=== PATIENT | female | born 1975 | race Caucasian/White ===

== ENCOUNTER → 2018-03-08 10:42 | Outpatient (CLI) | payer MEDICAID, SELFPAY ==
--- NOTE | 2018-03-08 10:48 | BI_ITS ---
MAMMOGRAPHY - BILATERAL SCREENING 3-D MAGNUS SYNTHESIS REASON FOR EXAM: Female, 42 years old. Bilateral Screening 3-D tomosynthesis PERTINENT HISTORY: No significant family history. TECHNIQUE: 2-D mammograms and 3-D Magnus synthesis of the breasts were performed. CAD was performed. COMPARISON: 03/06/2017 through 02/24/2015. FINDINGS: The breast composition is heterogeneously dense that can obscure small breast masses. No significant architectural distortion, asymmetric density, abnormal microcalcification cluster, dominant mass, adenopathy, skin thickening or nipple retraction identified. Coarse benign-appearing calcifications. No significant abnormality identified with tomosynthesis. BI/SCREENING MAMM (CAD), BILAT IMPRESSION: No mammographic sign of malignancy. Routine yearly mammograms recommended. ASSESSMENT CATEGORY: BIRADS Category 2: Benign. A letter regarding these results will be sent to the patient by the facility within 30 days. FOLLOW UP RECOMMENDATION: Yearly follow up mammogram recommended. (A) Negative results should not deter biopsy as a palpable lesion if present should be followed on clinical grounds and biopsy performed if clinically persistent for 3 months or increasing size. Approximately 10% of breast cancers are not detected by mammography. A normal mammogram should not delay biopsy of a clinically suspicious abnormality. Electronically Signed: Gustavo Marroquin, at 19:21 EDT Tel , Service support ,
== END ==
PROVIDERS: Family Provider Family Medicine; PCP Family Medicine; Visit Provider Family Medicine
DX: Z12.31 Encounter for screening mammogram for malignant neoplasm of breast (principal)
CPT/HCPCS: 77063; 77067

== ENCOUNTER → 2018-05-23 14:32 | Outpatient (CLI) | payer MEDICAID, SELFPAY ==
[2018-05-23 16:09] LABS: Cholesterol 183 mg/dL (200); High Density Lipoprotein 38 mg/dL; Thyroid Stim Hormone (TSH) 1.04 uIU/mL (0.358-3.74); Triglycerides 202 mg/dL; Very Low Density Lipoprotein 40 mg/dL (5-40)
== END ==
PROVIDERS: Family Provider Family Medicine; PCP Family Medicine; Visit Provider Family Medicine
DX: Z13.220 Encounter for screening for lipoid disorders (principal); E03.9 Hypothyroidism, unspecified
CPT/HCPCS: 36415; 80061; 84443

== ENCOUNTER → 2019-06-09 16:32 | Outpatient (CLI) | payer MEDICAID, SELFPAY ==
[2019-06-09 18:16] LABS: T4 Free Direct 1.08 ng/dL (0.76-1.46); Thyroid Stim Hormone (TSH) 0.82 uIU/mL (0.358-3.74)
== END ==
PROVIDERS: Family Provider Family Medicine; PCP Family Medicine; Visit Provider Family Medicine
DX: E03.9 Hypothyroidism, unspecified (principal)
CPT/HCPCS: 36415; 84439; 84443

== ENCOUNTER 2019-07-28 23:06 | Emergency (ER) | payer MEDICAID, SELFPAY ==
[2019-07-28 23:07] VITALS: BP 154/94; PULSE 98; RESP 18; TEMP 36.8; O2SAT 100; BMI 26.2
--- NOTE | 2019-07-28 23:30 | ED.DCSUM_ITS ---
History of Present Illness Chief Complaint: Sore Throat Informant: Patient Onset: Days - 2-3 Context: Gradual Onset Timing: Continuous Quality: sore Location: throat Current Severity: Moderate Maximum Severity: Moderate Worsened by: Swallowing, - - worse at night than in the AM Relieved by: - - nothing; tried NSAID Associated Symptoms: Negative for: Nasal Congestion, Headache, Sinus Pressure, Nausea, Vomiting, Shortness of Breath, Chest Pain, Nonproductive cough, Prod uctive Cough Narrative: Patient has swollen sore lymph node under her left jaw. No tooth ache. Pain radiates into her left ear. No coughing or fevers. 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 - Past Medical History (1) Hypothyroid Status: Chronic Past Medical History - Allergies and Home Meds Allergies/Adverse Reactions: Allergies No Known Allergies Allergy (Verified 07/28/19 23:09) Primary Care Physician: Robin Aguilar MD [Primary Care Provider] - Lives: Spouse/ Significant Other Smoking Status: Never smoker Review of Systems General: Denies: Chills, Fever, Sweats Eyes: Denies: Visual changes - bilaterally, Diplopia ENT: Reports: Right ear pain, Sore throat. Denies: Rhinorrhea Cardiovascular: Denies: Chest pain, Palpitations Respiratory: Denies: Dyspnea, Cough, Dyspnea on exertion Gastrointestinal: Denies: Abdominal pain, Nausea, Vomiting, Diarrhea, Melena, Hematochezia Skin: Denies: Rash, Wounds Neurological: Denies: Headache, Weakness, Numbness Hematologic: Reports: Lymphadenopathy. Denies: Easy bruising, Easy bleeding Allergy: Denies: Swelling of the mouth, Swelling of the tongue Physical Exam Vital Signs/Narrative: Vital Signs Temp Pulse Resp BP Pulse Ox 07/28/19 23:07 98.2 F 98 18 154/94 H 100 Inital Vital Signs reviewed: Yes General: Well nourished, Well developed Head: Normocephalic, Atraumatic Eyes: Perrl, EOMI Ears: Normal external canal, TM's clear. Negative for: Pain with Movement of Right Tragus, Pain with Movement of Left Tragus Nose: Normal Inspection, No Rhinorrhea. Negative for: Congestion, Purulent Drainage Mouth/Throat: Airway Patent, Posterior Oropharyngeal Erythema, - - No sublingual edema or tenderness. No discharge from any of the salivary gland ducts. No dental tenderness. No dental abscess or gingival abnormality. Tonsils: Negative for: Right Tonsilar Exudates, Left Tonsilar Exudates, Right Tonsilar Swelling, Left Tonsilar Swelling Neck: Supple, Anterior Lymphadenopathy - Left submandibular only. Negative for: Posterior Lymphadenopathy Cardiovascular: Regular rate, Regular rhythm, No murmurs Respiratory: No distress, CTA bilaterally, Chest nontender Skin: Normal color, No rash, No Trauma Neurological: Alert, Oriented x3, Cranial nerves II-XII grossly intact, Normal Strength, Normal Sensation, Normal Gait Psychological: Normal affect, Normal Mood Diagnostic/Tx/Re-eval - Medical Decision Making Rapid strep was performed and is negative. Culture is sent and pending. This makes the etiology much more likely to be viral, especially given the high prevalence of viral illness in this area recently, I would treat her with supportive care at this time including a dose of Decadron which was given, and if the culture returns positive, only then an antibiotic. Discussed this with the patient she is comfortable with this overall plan. ED Disposition - Plan for ED Patient: Disposition: Home or Assisted Living Diagnosis: Acute viral pharyngitis Instructions: PHARYNGITIS, Report Pending, Dexamethasone Oral tablet Referrals: Robin Aguilar MD [Primary Care Provider] - 1 Week if not improving
[2019-07-28] MEDS: dexAMETHasone 4 MG Tablet 8 MG PO (23:38)
== END 2019-07-29 00:06 | disposition home or self-care (01) ==
PROVIDERS: Emergency Provider Emergency Medicine; Family Provider Family Medicine; PCP Family Medicine
DX: J02.8 Acute pharyngitis due to other specified organisms (principal); B97.89 Other viral agents as the cause of diseases classified elsewhere; E03.9 Hypothyroidism, unspecified; Z79.899 Other long term (current) drug therapy
CPT/HCPCS: 87880; 99283

== ENCOUNTER → 2019-12-08 14:18 | Outpatient (CLI) | payer MEDICAID, SELFPAY ==
[2019-12-08 18:04] LABS: T4 Free Direct 1.08 ng/dL (0.76-1.46); Thyroid Stim Hormone (TSH) 1.07 uIU/mL (0.358-3.74)
== END ==
PROVIDERS: PCP Family Medicine; Visit Provider Family Medicine
DX: E03.9 Hypothyroidism, unspecified (principal)
CPT/HCPCS: 36415; 84439; 84443

== ENCOUNTER → 2020-06-16 07:17 | Outpatient (CLI) | payer OTHER, SELFPAY ==
--- NOTE | 2020-06-16 07:31 | MRI_ITS ---
STUDY: MRI BRAIN WITHOUT CONTRAST REASON FOR EXAM: Female, 45 years old. wordening migraines, increase in frequency TECHNIQUE: Standardized multiplanar fat and water weighted pulse sequences were obtained. COMPARISON: None. FINDINGS: Normal size of the ventricles and extra-axial spaces for the patient''s age. Normal white matter tracts of the supratentorial brain. There is no evidence for recent intracranial ischemia or other cause of cytotoxic edema on diffusion weighted imaging (DWI). Normal T2* images of the brain without demonstrated susceptibility artifact. There is no demonstrated hemosiderin stain. Normal bilateral basal ganglia. Normal thalami. There is no extra-axial fluid accumulation. Normal flow voids within the major intracranial circulation suggesting patency by spin echo criteria. Normal sella turcica, pituitary gland, infundibular stalk, optic chiasm and hypothalamus. Normal tectal plate and pineal gland. Normal midbrain, luana and medulla. Normal cerebellum. Normal basal cisterns. Normal bilateral temporal bones. Normal bilateral internal auditory canals. No demonstrated orbital abnormality, within the constraints of a routine brain study. Normal visualized paranasal sinuses. Normal calvarium and skull base. Normal visualized soft tissue structures. Normal visualized upper cervical spine. MRI/Brain without Contrast IMPRESSION: Normal unenhanced MRI of the brain. Electronically Signed: Mauri Gannon MD at 8:54 EST Tel , Service support ,
== END ==
PROVIDERS: PCP Family Medicine; Referring Provider Family Medicine; Visit Provider Family Medicine
DX: G43.909 Migraine, unspecified, not intractable, without status migrainosus (principal)
CPT/HCPCS: 70551

== ENCOUNTER → 2020-06-18 10:15 | Outpatient (CLI) | payer OTHER, MEDICAID, SELFPAY ==
[2020-06-18 13:28] LABS: Anion Gap 5 (5-15); BUN 11 mg/dL (7-18); BUN/Creat Ratio 13.7 RATIO (10-20); Chloride 106 mmol/L (98-107); Cholesterol 223 mg/dL (200); EST Glomerular Filtration Rate 83 mL/min (>60); Est Glom Filt Rate - Afr Amer 100 mL/min (>60); Glucose 91 mg/dL (74-106); High Density Lipoprotein 44 mg/dL; Potassium 3.7 mmol/L (3.5-5.1); Sodium Level 139 mmol/L (136-145); T4 Free Direct 1.07 ng/dL (0.76-1.46); Thyroid Stim Hormone (TSH) 1.28 uIU/mL (0.358-3.74); Triglycerides 130 mg/dL; Very Low Density Lipoprotein 26 mg/dL (5-40)
== END ==
PROVIDERS: PCP Family Medicine; Referring Provider Family Medicine; Visit Provider Family Medicine
DX: E03.9 Hypothyroidism, unspecified (principal); Z13.220 Encounter for screening for lipoid disorders; G43.909 Migraine, unspecified, not intractable, without status migrainosus
CPT/HCPCS: 36415; 80048; 80061; 84439; 84443

== ENCOUNTER → 2021-03-02 17:10 | Outpatient (CLI) | payer BC, SELFPAY ==
--- NOTE | 2021-03-02 17:15 | RAD_ITS ---
STUDY: X-RAY - PARANASAL SINUSES REASON FOR EXAM: Female, 45 years old. MIGRAINES TECHNIQUE: 4 view(s) of the paranasal sinuses were obtained. COMPARISON: None. FINDINGS: Normal visualized frontal, maxillary, ethmoidal and sphenoid sinuses. Normal visualized facial bones. The soft tissue structures are unremarkable. RAD/Sinuses min 3 Views IMPRESSION: Normal x-rays of the paranasal sinuses. Electronically Signed: Yariel Arce MD at 21:39 EDT , Service support ,
== END ==
PROVIDERS: PCP Family Medicine; Referring Provider Family Medicine; Visit Provider Family Medicine
DX: G43.909 Migraine, unspecified, not intractable, without status migrainosus (principal)
CPT/HCPCS: 70220

== ENCOUNTER → 2021-07-04 16:29 | Outpatient (CLI) | payer BC, SELFPAY ==
[2021-07-04 18:33] LABS: Vitamin D,25 Hydroxy 63.6 ng/mL
[2021-07-04 18:36] LABS: Anion Gap 7 (5-15); BUN 9 mg/dL (7-18); Calcium,Total 8.7 mg/dL (8.5-10.1); Chloride 105 mmol/L (98-107); Creatinine, Serum 0.82 mg/dL (0.55-1.02); EST Glomerular Filtration Rate 80 mL/min (>60); Est Glom Filt Rate - Afr Amer 97 mL/min (>60); Ferritin 29 ng/mL (8-252); Glucose 77 mg/dL (74-106); Iron 105 ug/dL (50-170); Potassium 3.7 mmol/L (3.5-5.1); Sodium Level 138 mmol/L (136-145); Thyroid Stim Hormone (TSH) 0.78 uIU/mL (0.358-3.74)
== END ==
PROVIDERS: PCP Family Medicine; Visit Provider Family Medicine
DX: E03.9 Hypothyroidism, unspecified (principal); G25.81 Restless legs syndrome; F32.A Depression, unspecified
CPT/HCPCS: 36415; 80048; 82306; 82728; 83540; 84443

== ENCOUNTER → 2021-07-25 15:35 | Outpatient (CLI) | payer BC, SELFPAY ==
[2021-08-01 14:45] LABS: HPV APTIMA, High Risk Negative (Negative)
[2021-08-01 14:47] LABS: HPV Reflexed? YES, CHARGE PATIENT
== END ==
PROVIDERS: PCP Family Medicine
DX: Z12.4 Encounter for screening for malignant neoplasm of cervix (principal)
CPT/HCPCS: 87624; 88175; G0145

== ENCOUNTER 2021-11-04 10:20 | Outpatient (CLI) | payer BC, MEDICAID, SELFPAY ==
--- NOTE | 2021-11-04 10:23 | RAD_ITS ---
STUDY: X-RAY - ABDOMEN/PELVIS REASON FOR EXAM: Female, 46 years old. FLANK PAIN TECHNIQUE: AP supine and upright views of the abdomen and pelvis. COMPARISON: None. FINDINGS: Normal visualized lung bases. There is a moderate amount of colonic fecal material. There is no demonstrated free abdominal air. The patient is status post cholecystectomy. No abnormal calcification is seen overlying the kidneys or course of the ureters. Normal soft tissue structures. Normal visualized osseous structures. RAD/Abd Inc Decub and/or Erect IMPRESSION: Moderate amount of fecal material is seen in the colon. Electronically Signed: Yariel Arce MD at 13:02 EDT ,
[2021-11-04 12:22] LABS: Absolute Lymphocyte Count 1.78 X10^3/uL (0.83-4.51); Absolute Neutrophil Count 4.2 X10^3/uL (2.0-7.7); Basophil# 0.06 X10^3/uL; Basophil% 0.9 % (0-1); Eosinophils% 1.5 % (0-5); Hematocrit 37.6 % (37-47); Hemoglobin 12.9 g/dL (12.0-15.0); Lymphocyte # 1.78 X10^3/ul (0.83-4.51); Mean Corp Hgb Conc 34.3 g/dL (32-36); Mean Corpuscular Hgb 32.5 pg (27.0-32.0); Mean Corpuscular Volume 94.7 fL (81-99); Mean Platelet Vol. 10.2 fl (6.2-12.0); Monocyte# 0.44 X10^3/uL; Monocyte% 6.7 % (0-10); NRBC Flagged by Analyzer 0 % (0-5); Neutrophil % 63.7 % (47-70); Platelet Count 345 K/mm3 (150-450); RBC Distribution Width CV 11.3 % (11.6-14.6); RBC Distribution Width SD 38.9 fl (35.1-43.9); Red Blood Count 3.97 M/mm3 (4.2-5.4); White Blood Count 6.6 K/mm3 (4.4-11.0)
[2021-11-04 12:38] LABS: ALB/GLOB Ratio 1.2 RATIO (0.9-2.4); AST(SGOT) 22 U/L (15-37); Alanine Aminotransfer ALT/SGPT 28 U/L (13-56); Albumin, Serum 3.9 g/dL (3.2-5.0); Alkaline Phosphatase 74 U/L (45-117); Anion Gap 5 (5-15); BUN 12 mg/dL (7-18); BUN/Creat Ratio 14.6 RATIO (10-20); Calcium,Total 8.9 mg/dL (8.5-10.1); Chloride 106 mmol/L (98-107); Creatinine, Serum 0.82 mg/dL (0.55-1.02); EST Glomerular Filtration Rate 80 mL/min (>60); Est Glom Filt Rate - Afr Amer 97 mL/min (>60); Globulin 3.2 g/dL (2.2-4.2); Glucose 100 mg/dL (74-106); Potassium 3.9 mmol/L (3.5-5.1); Protein, Total 7.1 g/dL (6.4-8.2); Sodium Level 138 mmol/L (136-145)
== END 2021-11-04 23:59 | disposition home or self-care (01) ==
LOC: MTLAB 10:21
PROVIDERS: PCP Family Medicine; Referring Provider Family Medicine; Visit Provider Family Medicine
DX: R10.9 Unspecified abdominal pain (principal)
CPT/HCPCS: 36415; 74019; 80053; 85025

== ENCOUNTER → 2022-07-18 | Outpatient (CLI) | payer BC, SELFPAY ==
--- NOTE | 2022-07-18 12:25 | BI_ITS ---
MAMMOGRAPHY - BILATERAL SCREENING REASON FOR EXAM: Female, 47 years old. Routine annual screening examination. PERTINENT HISTORY: Non-contributory. TECHNIQUE: Digital bilateral breast magnus (3D mammographic acquisition) in the CC and MLO projections. 2-D mediolateral oblique (MLO) and craniocaudad (CC) views of both breasts were obtained. CAD: Full Field Digital Mammography with Computer Added Detection was performed. COMPARISON: Comparison is made with prior study dated 03/08/2018. FINDINGS: Breast Composition: The breasts are extremely dense, which lowers the sensitivity of mammography. There are no dominant masses or suspicious calcifications. No other significant abnormalities are identified. There has been no significant change since the prior study. BI/SCRN MAMM (CAD)W/MAGNUS BILAT IMPRESSION: Stable bilateral screening mammogram. Yearly follow-up mammogram recommended. (A) ASSESSMENT CATEGORY: BIRADS Category 1: Negative. A letter regarding these results will be sent to the patient by the facility within 30 days. Approximately 10% of breast cancers are not detected by mammography. A normal mammogram should not delay biopsy of a clinically suspicious abnormality. [id number] Electronically Signed: Yariel Arce MD at 13:17 EST ,
== END | disposition home or self-care (01) ==
LOC: OPBI 12:24
PROVIDERS: PCP Family Medicine; Visit Provider Family Medicine
DX: Z12.31 Encounter for screening mammogram for malignant neoplasm of breast (principal)
CPT/HCPCS: 77063; 77067

== ENCOUNTER 2022-09-25 07:41 | Day surgery (SDC) | payer BC, MEDICAID, SELFPAY ==
[2022-09-25] VITALS (7 sets, daily range): BP systolic 89–123; BP diastolic 47–93; PULSE 80–106; RESP 14–16; TEMP 36.3–36.8; O2SAT 98–100; BMI 24.7
[2022-09-25 08:14] LABS: Internal QC Validated? YES +Cl - CLEAR BKGD; Pregnancy, Urine Negative Negative
[2022-09-25] MEDS: Lactated Ringers 1,000 ML 15 ML IV (08:15)
--- NOTE | 2022-09-25 08:19 | HP.PCM_ITS ---
HPI - General General Date of Admission: 09/25/22 HPI Narrative RACHEAL HERNANDEZ, is a 47 F who presents for colonoscopy due to constipation. Patient states she did try to track her fiber she had about 25 g daily even tried different types of fiber thought that could have made it a little bit worse she does drink plenty of water. Patient has started to take Colace about 250 mg daily and that seems to have helped. Patient did do a 2-day prep. Patient's never had a colonoscopy denies any family history of colon cancer. Denies any further bleeding with bowel movements since she was seen in office. 07/24/22 office visit HPI HPI: 47-year-old female presents due to constipation and abdominal pain.? Patient states has been going on for about a year.? Patient states she has bowel movements about every 3 days and they are hard she has some occasional bright red blood does know that she does have some hemorrhoids usually the bright red blood only on the toilet paper when she wipes.? Patient's never had a colonoscopy denies any family history of colon cancer.? Patient does have reflux at night maybe 2-3 nights a week.? Patient can have some mid abdominal pain occasionally with constipation maybe about once a month has tried Ex-Lax in the past but only takes the 1 dose and then does not take additional doses if that does not work. Patient is unsure about amount of fiber that she gets she gets greater than 40 ounces of water daily. [facility] Medical History (Updated 09/20/22 @ 12:58 by Sofie Burnett) Anxiety Constipation Depression Gastric reflux Hypothyroid Migraines Restless legs Thyroid disease Wears glasses Home Medications levothyroxine 50 mcg tablet 50 mcg PO DAILY 07/28/19 [History Last Taken Unknown] venlafaxine 75 mg capsule,extended release 24 hr 75 mg PO DAILY 07/28/19 [History Last Taken Unknown] rizatriptan 10 mg tablet 1 tablet PO PRN PRN Headache 07/24/22 [History Last Taken Unknown] topiramate 25 mg tablet 1 tablet PO QHS 07/24/22 [History Last Taken Unknown] Allergy/AdvReac Type Severity Reaction Status Date / Time No Known Allergies Allergy Verified 09/25/22 08:00 Family History (Updated 07/24/22 @ 12:59 by Sarah Yadav) Daughter Asthma Mother Cancer NHL blood cancer Kidney disease Sister Thyroid disorder Surgical History History of mandibular surgery S/P laparoscopic cholecystectomy S/P wisdom tooth extraction Social History (Updated 07/24/22 @ 12:59 by Sarah Yadav) Smoking Status: Former smoker alcohol intake: current alcohol intake frequency: holidays/special occasions only Past Medical/Surgical History Planned Operation Planned Operative Procedure/s: COLONOSCOPY Previous Hospitalizations/Surgeries HX Hospitalizations: No Any Problems With Anesthesia: No You/Your Family Experience Fever (Hyperthermia) With Anes: No Cholinesterase deficiency: No Cardiovascular Hx Hypertension: No Respiratory Hx Sleep Apnea: No Hx Respiratory Tract Infection/Cold (presently): No Do You Snore Loudly (louder than talking or can be heard): No Do You Often Feel Tired/ Fatigued/ Sleepy Dring Daytime?: No Has Anyone Observed You Stop Breathing During Sleep?: No Result (for STOP score): Negative Smoking Status: Former smoker Neurological Does patient have nerve stimulator: No Miscellaneous Recent Exposure to Contagious Disease: No Allergies No Known Allergies Allergy (Verified 09/25/22 08:00) Discharge Is Pt Admitted From a [facility], or a Care Home: No Who Could Help: FAMILY After D/C, Where Do you Plan to Go: Return Home Vital Signs Vital Signs Vital Signs: 09/25/22 08:01 09/25/22 08:01 Temperature 98.2 F Temperature Source Temporal Pulse Rate 106 H Respiratory Rate 16 Respiratory Pattern Normal Blood Pressure 123/93 H Blood Pressure Mean 103 Blood Pressure Source Monitor Blood Pressure Position Semi-Fowlers Blood Pressure Location Left Arm Pulse Ox 100 Oxygen Delivery Method Room Air Weight Weight: 140 lb Body Mass Index (BMI) 24.7 Physical Exam Const alert, oriented x3 and no apparent distress HEENT normocephalic and head/scalp atraumatic Resp normal respiratory effort Cardio regular rate GI soft to palpation and non-tender; Negative for non-distended Palpation: Negative for guarding Extremity no clubbing, cyanosis or edema Neuro CN's II-XII intact bilaterally Psych mental status grossly normal Assessment & Plan Assessment/Plan (1) Constipation: Surgery Risks - Colonoscopy Risks Include but are not Limited To: Risks include but are not limited to: Bleeding, perforation requiring further surgery, inability to complete colonoscopy requiring barium enema.
--- NOTE | 2022-09-25 09:24 | OP.CCLET_ITS ---
09/25/2022 Robin Aguilar [address] [place] [address] Re : Colonoscopy procedure for Lois Evangelista Dear Dr. Aguilar This procedure was performed on Sunday, September 25, 2022. My impressions and recommendations are as follows: Impressions : - Hemorrhoids found on perianal exam. - Non-bleeding external and internal hemorrhoids. - The entire examined colon is normal. - No specimens collected. Recommendations : - Discharge patient to home. - Resume previous diet. - Continue present medications. - Repeat colonoscopy in 10 years for screening purposes. My findings are described in the full procedure note, which is enclosed. If I can be of further assistance, please feel free to contact me at Doctor phone number(s): , Work: . Sincerely, MD Genesis Lane MD 09/25/2022 9:23:22 AM This report has been signed electronically.
--- NOTE | 2022-09-25 09:24 | OP.COLON_ITS ---
Patient Name: Lois Evangelista Procedure Date: 09/25/2022 8:42 AM Date of : 1975 Age: 47 Procedure: Colonoscopy Indications: Constipation Providers: Genesis James MD Medicines: Monitored Anesthesia Care Patient Profile: This is a 47 year old female. Last Colonoscopy: none. The patient's first colonoscopy is today. Complications: No immediate complications. Procedure: Pre-Anesthesia Assessment: - Prior to the procedure, a History and Physical was performed, and patient medications and allergies were reviewed. The patient's tolerance of previous anesthesia was also reviewed. The risks and benefits of the procedure and the sedation options and risks were discussed with the patient. All questions were answered, and informed consent was obtained. Prior Anticoagulants: The patient has taken no previous anticoagulant or antiplatelet agents. ASA Grade Assessment: Per anesthesia. After reviewing the risks and benefits, the patient was deemed in satisfactory condition to undergo the procedure. After I obtained informed consent, the scope was passed under direct vision. Throughout the procedure, the patient's blood pressure, pulse, and oxygen saturations were monitored continuously. The pediatric colonoscope was introduced through the anus and advanced to the cecum, identified by the appendiceal orifice, ileocecal valve and palpation. The colonoscopy was technically difficult and complex due to a tortuous colon. The patient tolerated the procedure well. The quality of the bowel preparation was good. Scope In: 8:49:10 AM Scope Withdrawal Time 0 hours 4 minutes 53 seconds Scope Out: 9:17:59 AM Total Procedure Duration Time 0 hours 28 minutes 49 seconds Findings: Hemorrhoids were found on perianal exam. Non-bleeding external and internal hemorrhoids were found. The hemorrhoids were moderate and Grade I (internal hemorrhoids that do not prolapse). The entire examined colon appeared normal. Impression: - Hemorrhoids found on perianal exam. - Non-bleeding external and internal hemorrhoids. - The entire examined colon is normal. - No specimens collected. Recommendation: - Discharge patient to home. - Resume previous diet. - Continue present medications. - Repeat colonoscopy in 10 years for screening purposes. Procedure Code(s): --- Professional --- 60316, PT, Colonoscopy, flexible; diagnostic, including collection of specimen(s) by brushing or washing, when performed (separate procedure) Diagnosis Code(s): --- Professional --- K64.0, First degree hemorrhoids K59.00, Constipation, unspecified CPT copyright 2017 [employer]. All rights reserved. The codes documented in this report are preliminary and upon flight test supervisor review may be revised to meet current compliance requirements. MD Genesis Lane MD 09/25/2022 9:23:22 AM This report has been signed electronically. Number of Addenda: 0 Note Initiated On: 09/25/2022 8:42 AM
== END 2022-09-25 10:17 | disposition home or self-care (01) ==
LOC: EN 07:47 → AC 07:49
PROVIDERS: Anesthesiology; PCP Family Medicine; Referring Provider Family Medicine; Visit Provider Surgery
PROC: 0DJD8ZZ Inspection of Lower Intestinal Tract, Via Natural or Artificial Opening Endoscopic (ICD-10-PCS; CPT 45378; principal; 2022-09-25 08:40)
DX: K59.00 Constipation, unspecified (principal); Z87.891 Personal history of nicotine dependence; E07.9 Disorder of thyroid, unspecified; K64.0 First degree hemorrhoids; E03.9 Hypothyroidism, unspecified
CPT/HCPCS: 45378; 81025; J7120; J2405

== ENCOUNTER → 2022-10-02 | Outpatient (CLI) | payer BC, SELFPAY ==
[2022-10-02 16:15] LABS: Anion Gap 8 (5-15); BUN 12 mg/dL (7-18); BUN/Creat Ratio 13.6 RATIO (10-20); Chloride 106 mmol/L (98-107); Cholesterol 206 mg/dL (200); Creatinine, Serum 0.88 mg/dL (0.55-1.02); EST Glomerular Filtration Rate 74 mL/min (>60); Est Glom Filt Rate - Afr Amer 89 mL/min (>60); Glucose 92 mg/dL (74-106); High Density Lipoprotein 50 mg/dL; Potassium 3.9 mmol/L (3.5-5.1); Sodium Level 140 mmol/L (136-145); Thyroid Stim Hormone (TSH) 0.66 uIU/mL (0.358-3.74); Triglycerides 87 mg/dL; Very Low Density Lipoprotein 17 mg/dL (5-40)
== END | disposition home or self-care (01) ==
LOC: MFPLAB 13:39
PROVIDERS: PCP Family Medicine; Visit Provider Family Medicine
DX: Z13.1 Encounter for screening for diabetes mellitus (principal); Z13.220 Encounter for screening for lipoid disorders; E03.9 Hypothyroidism, unspecified
CPT/HCPCS: 36415; 80048; 80061; 84443

== ENCOUNTER → 2023-10-02 | Outpatient (CLI) | payer BC, SELFPAY ==
--- NOTE | 2023-10-02 14:26 | RAD_ITS ---
EXAM: XR SACRUM AND COCCYX, 2 OR MORE VIEWS CLINICAL INDICATION: M53.3 TECHNIQUE: Frontal and lateral views of the sacrum and coccyx. COMPARISON: Abdomen radiographs, 11/04/2021. FINDINGS: SACRUM/COCCYX: Transitional anatomy at the lumbosacral junction with sacralization of L5. No displaced fracture. No destructive or sclerotic lesions. Note that overlapping bowel shadows may however obscure fine detail in the frontal view. Sacroiliac joints are unremarkable. VERTEBRAE: The sacrum appears intact with normal kyphosis. DISC SPACES: Degenerative changes in the visualized lower lumbar spine and bilateral SI joints. SOFT TISSUES: No significant abnormality. No soft tissue swelling or gas. OTHER FINDINGS: No widening of the pubic symphysis. RAD/Sacrum-Coccyx min 2 Views IMPRESSION: Transitional anatomy at the lumbosacral junction with sacralization of L5. Degenerative changes in the lower lumbar spine and SI joints. No acute osseous findings. Electronically Signed: Tate Morgan DO at 0:05 EST ,
[2023-10-02 18:08] LABS: Hematocrit 39.2 % (37-47); Hemoglobin 12.9 g/dL (12.0-15.0); Mean Corp Hgb Conc 32.9 g/dL (32-36); Mean Corpuscular Hgb 31.8 pg (27.0-32.0); Mean Corpuscular Volume 96.6 fL (81-99); Mean Platelet Vol. 10.2 fl (6.2-12.0); Platelet Count 326 K/mm3 (150-450); RBC Distribution Width CV 11.6 % (11.6-14.6); RBC Distribution Width SD 40.9 fl (35.1-43.9); Red Blood Count 4.06 M/mm3 (4.2-5.4); White Blood Count 8.8 K/mm3 (4.4-11.0)
[2023-10-02 18:30] LABS: Vitamin D,25 Hydroxy 33.8 ng/mL
[2023-10-02 18:51] LABS: Anion Gap 7 (5-15); BUN 14 mg/dL (7-18); Calcium,Total 8.8 mg/dL (8.5-10.1); Chloride 107 mmol/L (98-107); Cholesterol 226 mg/dL (200); Creatinine, Serum 0.88 mg/dL (0.55-1.02); EST Glomerular Filtration Rate 74 mL/min (>60); Est Glom Filt Rate - Afr Amer 89 mL/min (>60); Glucose 88 mg/dL (74-106); High Density Lipoprotein 46 mg/dL; Potassium 3.8 mmol/L (3.5-5.1); Sodium Level 138 mmol/L (136-145); Thyroid Stim Hormone (TSH) 0.74 uIU/mL (0.358-3.74); Triglycerides 188 mg/dL; Very Low Density Lipoprotein 38 mg/dL (5-40)
== END | disposition home or self-care (01) ==
PROVIDERS: PCP Family Medicine; Referring Provider Family Medicine; Visit Provider Family Medicine
DX: Z13.220 Encounter for screening for lipoid disorders (principal); M53.3 Sacrococcygeal disorders, not elsewhere classified; G43.909 Migraine, unspecified, not intractable, without status migrainosus; E03.9 Hypothyroidism, unspecified; F32.A Depression, unspecified; Z13.1 Encounter for screening for diabetes mellitus
CPT/HCPCS: 36415; 72220; 80048; 80061; 82306; 84443; 85027

== ENCOUNTER → 2023-10-17 | Outpatient (CLI) | payer BC, SELFPAY ==
--- NOTE | 2023-10-17 13:04 | BI_ITS ---
MAMMOGRAPHY - BILATERAL SCREENING REASON FOR EXAM: Female, 48 years old. Routine annual screening examination. PERTINENT HISTORY: Non-contributory. TECHNIQUE: Digital bilateral breast magnus (3D mammographic acquisition) in the CC and MLO projections. 2-D mediolateral oblique (MLO) and craniocaudad (CC) views of both breasts were obtained. CAD: Full Field Digital Mammography with Computer Added Detection was performed. COMPARISON: Comparison is made with prior study dated July 18, 2022 and March 08, 2018. FINDINGS: Breast Composition: The breasts are extremely dense, which lowers the sensitivity of mammography. There are no dominant masses or suspicious calcifications. No other significant abnormalities are identified. There has been no significant change since the prior study. BI/SCRN MAMM (CAD)W/MAGNUS BILAT IMPRESSION: Stable bilateral screening mammogram. Yearly follow-up mammogram recommended. (A) ASSESSMENT CATEGORY: BIRADS Category 1: Negative. A letter regarding these results will be sent to the patient by the facility within 30 days. Approximately 10% of breast cancers are not detected by mammography. A normal mammogram should not delay biopsy of a clinically suspicious abnormality. [id number] Electronically Signed: Yariel Arce MD at 14:26 EDT ,
== END | disposition home or self-care (01) ==
LOC: OPBI 12:59
PROVIDERS: PCP Family Medicine; Referring Provider Family Medicine; Visit Provider Family Medicine
DX: Z12.31 Encounter for screening mammogram for malignant neoplasm of breast (principal)
CPT/HCPCS: 77063; 77067

== ENCOUNTER 2024-09-16 16:30 | Outpatient (RCR) | payer BC, SELFPAY ==
--- NOTE | 2024-09-02 14:45 | HP.PTEVAL ---
Patient's Visit Information Visit Information Visit Information: RACHEAL HERNANDEZ is a 49 year old F referred to Physical Therapy by Dr. Frederick Aguilar MD with a diagnosis of diploplia/vestibular. Date of Evaluation: 09/02/24 Physical Therapist: John Chow, DPT, OCS, CSCS Visit Plan Frequency: 1x/Week Duration: 4-6 Weeks Plan: weekly to every other week as needed to progress VOR to VOR x2 if improved 60 sec x 1 in busy environments and subjective. Check vestibular as needed and back to doctor if no changes. Subjective Subjective: Had vision theerapy b/c she sees double at a certain distance. About 10 feet and out. It has been that way constantly for 7 months or so. Eye doctor put prism on glasses last January and it became constant. Prior was intermittent. This is constant. No dizzyness. Always been head achy. Does not connect them. No balance problems or falls. Activities : avoids driving, has to close one eye. Does not currently drive. Has not since January last year. Sleep is OK Employed: no. Overwhelming to shop in a store. Hard to focus on TV. Hobbies: jyoti, reading and computer not affected. Objective Objective: Walks into PT I without balance deficits. Transfers chair I without UE. Posture is good and no vidence of pain or discomfort today. cervical aROM is WFL and without pain. Steps reciprocal without rail. UE AROM WFL. Sensation UE WNL to gross light touch. oculomotor: no nystagmus with gaze or head shake - skew eye deviaiton - head tilt. - head thrust Pursuit and saccades appear normal, asymptomatic. VOR H and V 40 seconds without symptoms or problems. VOR in busy visual background for 45 seconds makes dizzy for about 5 seconds. this is the only abnormal finding today. MSQ is asymptomatic DVA is within 2 lines of SVA today which is normal. Diploplia is pretty consistent outside of 10 feet today. Balance/Special Test Scores Dizziness Score: 24 Goals Goal 1:: VOR 60 seconds in busy gym without symptoms. Goal Time Frame: 4-6 Weeks Goal 2:: Pt notice improvement by 50% + to her symptoms of diploplia/focus problem in busy stores. Goal Time Frame: 4-6 Weeks Goal 3:: 6 or less DHI Goal Time Frame: 4-6 Weeks Rehabilitation Potential Physical Therapy Diagnosis: some very minor and transient dizzyness with busy environment VOR H standing in gym today. Unsure if this correlates with her symptoms of diploplia and some frustration in busy visual environments which would be unusual for therapy patient without other symptoms. Rehabilitation Potential: Questionable Anticipated Interventions Patient/Client Instruction: Educate patient on: Condition and Plan of Care For the Purpose of:: To improve self management and Other Other: to diiminish diloplia and frustration in busy environments. Comment: adaptation as helpful Other: to diminish diloplia and frustration in busy environments. Text: Thank you for the opportunity to evaluate your patient. For Medicare and Medicare HMO plans, please review the plan of care and approve it. It will need to be FAXED BACK to us at [phone] for Medicare purposes. For Medicare only, by signing this I certify the plan of care. Please let me know if there are questions or concerns regarding this plan of care. Physician Signature: Date:
--- NOTE | 2024-09-16 16:52 | HP.PTDCSUM ---
Discharge Summary D/C summary: It has been my pleasure to treat RACHEAL HERNANDEZ referred by Dr. Frederick Aguilar MD, with the diagnosis of diploplia/vestibular for a total of 2 visit(s). Discharge Date: 09/16/24 Please see the following information for a summary of their discharge status. Subjective Subjective: Did not do ex as often as it should. Makes CHRISTINE worse if she has them. Does not cause CHRISTINE. Typically has CHRISTINE daily. Objective Objective/Function: MSQ positions are no problem, no dizzyness or changes to double vision symptoms. Oculomotr is simiilar to last time in that nothing unusual presents, VOR walking slight transiently dizzy but no change to main complaint of double vision Goals Goal 1:: VOR 60 seconds in busy gym without symptoms. Goal Progress: Not Progressing Goal 2:: Pt notice improvement by 50% + to her symptoms of diploplia/focus problem in busy stores. Goal Progress: Not Progressing Goal 3:: 6 or less DHI Goal Progress: Not Progressing Plan Plan: No improvement with trial of vestibular exercises and recommend back to doctor for next medical step as this is not obviously vestibular in nature. D/C Information Discharge Comments: Pt to get back to doctor for next medical step due to non improvement with PT d/c sentence: If there are questions or concerns regarding this patient's physical therapy, please feel free to call me at [phone]. Thank you for the referral of this patient. Sincerely, John Chow, DPT, OCS, CSCS Balance/Gait/Functional tests Balance/Special Test Scores Functional Gait Assessment Score: 30 % Disability: 0 Dizziness Score: 24
== END 2024-09-16 19:00 | disposition home or self-care (01) ==
LOC: PT 16:30
PROVIDERS: PCP Family Medicine; Referring Provider Family Medicine; Visit Provider Family Medicine
DX: H53.2 Diplopia (principal)
CPT/HCPCS: 97161; 97530

== ENCOUNTER → 2024-10-07 | Outpatient (CLI) | payer BC, SELFPAY ==
[2024-10-07 18:00] LABS: Hematocrit 38.3 % (37-47); Hemoglobin 13.3 g/dL (12.0-15.0); Mean Corp Hgb Conc 34.7 g/dL (32-36); Mean Corpuscular Hgb 32.7 pg (27.0-32.0); Mean Corpuscular Volume 94.1 fL (81-99); Mean Platelet Vol. 10.2 fl (6.2-12.0); Platelet Count 438 K/mm3 (150-450); RBC Distribution Width CV 11.6 % (11.6-14.6); RBC Distribution Width SD 39.8 fl (35.1-43.9); Red Blood Count 4.07 M/mm3 (4.2-5.4); White Blood Count 8.8 K/mm3 (4.4-11.0)
[2024-10-07 18:57] LABS: ALB/GLOB Ratio 1.4 RATIO (0.9-2.4); AST(SGOT) 35 U/L (<=31); Alanine Aminotransfer ALT/SGPT 30 U/L (<=34); Albumin, Serum 4.4 g/dL (3.5-5.0); Alkaline Phosphatase 97 U/L (35-104); Anion Gap 12 (5-15); BUN 10 mg/dL (4-19); BUN/Creat Ratio 11.9 RATIO (10-20); Calcium,Total 9.4 mg/dL (7.6-11.0); Carbon Dioxide 26.7 mmol/L (21.0-32.0); Chloride 100 mmol/L (98-108); Creatinine, Serum 0.82 mg/dL (0.70-1.20); EST Glomerular Filtration Rate 89 (>60); Globulin 3.2 g/dL (2.2-4.2); Glucose 106 mg/dL (70-99); Iron 53 ug/dL (50-170); Potassium 3.7 mmol/L (3.3-5.1); Protein, Total 7.5 g/dL (5.9-8.4); Sodium Level 139 mmol/L (133-145); Total Bilirubin 0.22 mg/dL (0.00-1.30)
[2024-10-07 19:02] LABS: Ferritin 50 ng/mL (22-378); Thyroid Stim Hormone (TSH) 0.799 uIU/mL (0.300-4.200); Vitamin D,25 Hydroxy 60.6 ng/mL (30-100)
== END | disposition home or self-care (01) ==
LOC: MTLAB 14:37
PROVIDERS: PCP Family Medicine; Referring Provider Family Medicine; Visit Provider Family Medicine
DX: F32.A Depression, unspecified (principal); E03.9 Hypothyroidism, unspecified; G25.81 Restless legs syndrome; E55.9 Vitamin D deficiency, unspecified
CPT/HCPCS: 36415; 80053; 82306; 82728; 83540; 84439; 84443; 85027

== ENCOUNTER → 2024-11-13 | Outpatient (CLI) | payer BC, SELFPAY | END | disposition home or self-care (01) | LOC: LABSPEC 13:59 | PROVIDERS: PCP Family Medicine | DX: Z12.4 Encounter for screening for malignant neoplasm of cervix (principal) | CPT/HCPCS: 88175; G0145 ==

== ENCOUNTER → 2024-12-02 | Outpatient (CLI) | payer BC, SELFPAY ==
--- NOTE | 2024-12-02 16:17 | MRI_ITS ---
PROCEDURE: BRAIN W/WO CONTRAST 12/02/2024 REASON FOR EXAM: DOUBLE VISION TECHNIQUE: Routine brain MRI without and with intravenous contrast. Multiplanar and multisequence images were obtained. CONTRAST: Gwen scan VOLUME: 13 mL Gauge IV COMPARISON: 06/16/2020 FINDINGS: Brain: Normal signal intensities. Diffusion: No restricted diffusion to suggest acute or subacute infarction. Ventricles: Normal. Major Intracranial Vessels: Normal flow voids. Sinuses: Clear. Mastoids: Clear. Normal orbits. MRI/Brain W/WO Contrast IMPRESSION: NORMAL BRAIN MRI WITHOUT AND WITH CONTRAST. Reading Location: [id number]
== END | disposition home or self-care (01) ==
LOC: MRI 16:00
PROVIDERS: PCP Family Medicine; Referring Provider Family Medicine; Visit Provider Family Medicine
DX: H53.2 Diplopia (principal)
CPT/HCPCS: 70553; A9575